=== PATIENT | female | born 1935 ===

== ENCOUNTER 2017-09-23 09:47 | Inpatient (IN) | payer OTHER, MEDICARE ==
[2017-09-23] MEDS ORDERED: GLUCAGON 1 MG/ML VIAL OTHER PRN (15:30)
[2017-09-23] MEDS ORDERED: DEXTROSE 50% IN WATER 50 ML VIAL(D50) IV PUSH PRN (15:30)
[2017-09-23 16:00] VITALS: BP 158/76; PULSE 67; RESP 18; TEMP 97.8; O2SAT 97
[2017-09-23] MEDS ORDERED: CO-EPOW PO (16:01)
[2017-09-23] MEDS ORDERED: LEVO250T7 PO (16:01)
[2017-09-23] MEDS ORDERED: OFLO0.3D5 EACH EYE (16:01)
[2017-09-23] MEDS ORDERED: LOVA20TA PO (16:01)
[2017-09-23] MEDS ORDERED: NITR100C4 PO (16:01)
[2017-09-23] MEDS ORDERED: DIFL0.0512 EACH EYE (16:01)
[2017-09-23] MEDS ORDERED: FURO40TA PO (16:01)
[2017-09-23] MEDS ORDERED: METO-488 PO (16:01)
[2017-09-23] MEDS ORDERED: MAGN400S (16:01)
[2017-09-23] MEDS ORDERED: ESCI5TAB PO (16:01)
[2017-09-23] MEDS ORDERED: GLIP10TA6 PO (16:01)
[2017-09-23] MEDS ORDERED: KRIL500C2 (16:01)
[2017-09-23] MEDS ORDERED: LISI-519 PO (16:01)
--- NOTE | 2017-09-23 16:07 | RADRPT ---
EXAM DATE/TIME: 09/23/2017 15:41 [place] COMPARISON: No previous studies available for comparison. INDICATIONS : Cough and shortness of breath. MEDICAL HISTORY : Hypertension. Diabetes. SURGICAL HISTORY : CABG. ENCOUNTER: Initial ACUITY: 3 months PAIN SCORE: 0/10 LOCATION: Bilateral chest FINDINGS: There is slight asymmetric elevation of and flattening of the right diaphragm. This may be chronic or may reflect some pleural fluid. There is diffuse interstitial prominence of undetermined chronicity. Heart size is borderline. Mediastinal contours are satisfactory accounting for rotation. There has b een previous sternotomy and CABG. CONCLUSION: Mild diffuse interstitial prominence. Possible right pleural effusion. Fidel Atkins MD on September 23, 2017 at 16:04 Board Certified Radiologist. This report was verified electronically.
--- NOTE | 2017-09-23 16:44 | HHI.HP ---
History of Present Illness Chief Complaint: AAA History of Present Illness 82 yo female with history of EVAR done elsewhere and that has lost proximal fixation, so she has an essentially unrepaired 10cm juxtarenal AAA. She is asymptomatic from this. She is not an open surgical candidate by history. She presents for steroid/HCO3 in preparation for EVAR with renal stents. Past/Family/Social History Past Medical History AAA CAD renal artery stenosis depression HTN CHF XOL Past Surgical History CABG EVAR with endovascular remediation Social History former smoker Family History NC Home Medications Reported Medications Ofloxacin Opth Drops (Ofloxacin Opth Drops) 0.3 % Drops, 1 DROP EACH EYE QID, # 1 BOTTLE 09/23/17 Nitrofurantoin Monohydrate Macrocrystals (Nitrofurantoin Monohydrate Macrocrystals) 100 Mg Cap, 100 MG PO BID for Infection, CAP 0 Refills 09/23/17 Metoprolol Succinate/HCTZ 50-12.5 ER (Metoprolol Succinate/HCTZ 50-12.5 ER) 50 Mg-12.5 Mg Tab, 1 TAB PO BID, #30 TAB 0 Refills 09/23/17 Magnesium Hydroxide (Eq Milk of Magnesia) 400 Mg/5 Ml Nanette 09/23/17 Lovastatin (Lovastatin) 20 Mg Tab, 20 MG PO DAILY for Cholesterol Management, # 30 TAB 0 Refills 09/23/17 Lisinopril (Lisinopril) 5 Mg Tab, 5 MG PO DAILY for Blood Pressure Management, # 30 TAB 0 Refills 09/23/17 Levofloxacin (Levofloxacin) 250 Mg Tablet, 250 MG PO DAILY for Infection, TAB 0 Refills 09/23/17 Krill Oil (Krill Oil) 500 Mg Capsule 09/23/17 Glipizide (Glipizide) 10 Mg Tab, 10 MG PO DAILY for Blood Sugar Management, #30 TAB 0 Refills Take 30 minutes before a meal 09/23/17 Furosemide (Furosemide) 40 Mg Tab, 40 MG PO DAILY, #30 TAB 0 Refills 09/23/17 Escitalopram (Escitalopram) 5 Mg Tab, 5 MG PO DAILY, #30 TAB 0 Refills 09/23/17 Difluprednate Opth (Durezol Opth) 0.05% Emul, 1 DROP EACH EYE BID 09/23/17 Coenzyme Q10 (Bulk) (Co-Enzyme Q10 (Bulk)) 1 Powd, 100 MG PO DAILY 09/23/17 Coded Allergies: CRISTOPHER Inhibitors (Verified Allergy, Mild, rash, 09/23/17) amoxicillin (Verified Allergy, Mild, rash, 09/23/17) celecoxib (Verified Allergy, Mild, itching, 09/23/17) clavulanic acid (Verified Allergy, Mild, rash, 09/23/17) iodine (Verified Allergy, Mild, rash, 09/23/17) Uncoded Allergies: Shellfish (Allergy, Unknown, anaphylaxis, 09/23/17) Review of Systems Constitutional: DENIES: Fever, Chills, Night Sweats Cardiovascular: COMPLAINS OF: Dyspnea on Exertion, DENIES: Chest pain, Claudication Physical Exam Neuro: alert, oriented, no distress, CHAVEZ HEENT: NC/AT Neck: no JVD Heart: reg rate, no M Lungs: clear Abdomen: obese, NT Vascular: palpable UE pulses Extremities: B LE edema, mild pending Last 48 hours Impressions Chest X-Ray 09/23/17 0000 Signed Impressions: Service Date/Time: Saturday, September 23, 2017 15:41 - CONCLUSION: Mild diffuse interstitial prominence. Possible right pleural effusion. Fidel Atkins MD Caprini VTE Risk Assessment Caprini VTE Risk Assessment: No/Low Risk (score <= 1) Caprini Risk Assessment Model Point Value = 1 Point Value = 2 Point Value = 3 Point Value = 5 Age 41-60 Minor surgery BMI > 25 kg/m2 Swollen legs Varicose veins or History of unexplained or recurrent spontaneous Oral contraceptives or hormone replacement Sepsis (< 1 month) Serious lung disease, including pneumonia (< 1 month) Abnormal pulmonary function Acute myocardial infarction Congestive heart failure (< 1 month) History of inflammatory bowel disease Medical patient at bed rest Age 61-74 Arthroscopic surgery Major open surgery (> 45 min) Laparoscopic surgery (> 45 min) Malignancy Confined to bed (> 72 hours) Immobilizing plaster cast Central venous access Age >= 75 History of VTE Family history of VTE Factor V Leiden Prothrombin [id number] Lupus anticoagulant Anticardiolipin antibodies Elevated serum homocysteine Heparin-induced thrombocytopenia Other congenital or acquired thrombophilia Stroke (< 1 month) Elective arthroplasty Hip, pelvis, or leg fracture Acute spinal cord injury (< 1 month) Prophylaxis Regimen Total Risk Factor Score Risk Level Prophylaxis Regimen 0-1 Low Early ambulation 2 Moderate Order ONE of the following: *Sequential Compression Device (SCD) *Heparin 5000 units SQ BID 3-4 Higher Order ONE of the following medications: *Heparin 5000 units SQ TID *Enoxaparin/Lovenox 40 mg SQ daily (WT < 150 kg, CrCl > 30 mL/min) *Enoxaparin/Lovenox 30 mg SQ daily (WT < 150 kg, CrCl > 10-29 mL/min) *Enoxaparin/Lovenox 30 mg SQ BID (WT < 150 kg, CrCl > 30 mL/min) AND/OR *Sequential Compression Device (SCD) 5 or more Highest Order ONE of the following medications: *Heparin 5000 units SQ TID (Preferred with Epidurals) *Enoxaparin/Lovenox 40 mg SQ daily (WT < 150 kg, CrCl > 30 mL/min) *Enoxaparin/Lovenox 30 mg SQ daily (WT < 150 kg, CrCl > 10-29 mL/min) *Enoxaparin/Lovenox 30 mg SQ BID (WT < 150 kg, CrCl > 30 mL/min) AND *Sequential Compression Device (SCD) Assessment and Plan Plan 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 She is not a candidate for open EVAR conversion and her family and I have talked extensively about the options, including no surgery. She is going to undergo re-do EVAR with B renal artery stents tomorrow. I have discussed in detail the plan and the patient and her family agree to proceed. They understand the risks, including but not limited to , inability to seal aneurysm, renal stent failure that may lead to dialysis. 1. NPO after MN 2. MIVF with HCO3 for renal protection 3. Steroid prep for contrast allergy: anticipate surgery at 0800 09/24 4. T&C 2U 5. Pre-op CXR, EKG, blood work 6. Consents are signed, witnessed, and on chart 7. Will check B UE blood pressures for renal stent delivery Abraham Wylie MD FACS VI briar cutter [facility] - Heart and Vascular Surgery at [place] [phone] Abraham Wylie MD Sep 23, 2017 16:44
[2017-09-23] MEDS: INSULIN NovoLIN REGULAR SUPPLEMENTAL SCALE SQ SCH ×2 (17:00→21:54)
[2017-09-23] MEDS: HEPARIN SODIUM - SQ 10,000 UNITS/ML VIAL SQ SCH ×2 (17:00→21:43)
[2017-09-23 18:20] LABS: HEMATOCRIT 41.1 % (35.0-46.0); HEMOGLOBIN 13.9 GM/DL (11.6-15.3); MEAN CELL VOLUME 91.8 FL (80.0-100.0); MEAN CORPUSCULAR HGB CONC 33.8 % (32.0-36.0); MEAN PLATELET VOLUME 8.4 FL (7.0-11.0); PLATELET COUNT 162 TH/MM3 (150-450); RED BLOOD COUNT 4.48 MIL/MM3 (4.00-5.30)
[2017-09-23 18:31] LABS: INTERNATIONAL NORMALIZED RATIO 1.1 RATIO; PROTHROMBIN TIME - PATIENT 10.9 SEC (9.8-11.6)
[2017-09-23 18:40] LABS: BICARBONATE 26.4 MEQ/L (21.0-32.0); CALCIUM 9.3 MG/DL (8.5-10.1); CREATININE 1.96 MG/DL (0.50-1.00)
[2017-09-23] MEDS: SODIUM BICARBONATE 8.4% INJ 100 MEQ in DEXTROSE 5% IN WATE 1000ML INJ 1,000 ML IV SCH ×2 (18:53)
[2017-09-23] MEDS ORDERED: predniSONE 50 MG TAB PO ONE (19:00)
[2017-09-23 20:00] VITALS: BP_SYST 130; BP_SYST 134; BP_DIAS 77; BP_DIAS 84; PULSE 68; RESP 16; TEMP 97.7; O2SAT 95
[2017-09-23] MEDS: METOPROLOL TARTRATE 25 MG TAB PO SCH (21:00)
[2017-09-23] MEDS: ATORVASTATIN 40 MG TAB PO SCH (21:53)
[2017-09-23] MEDS: FAMOTIDINE 20 MG TAB PO SCH (21:54)
[2017-09-23 23:47] VITALS: PULSE 73
[2017-09-24] VITALS: BP 132/73; PULSE 62; RESP 16; TEMP 97.9; O2SAT 95
[2017-09-24] MEDS ORDERED: predniSONE 50 MG TAB PO ONE ×2 (01:00→07:00)
[2017-09-24] MEDS ORDERED: LACTATED RINGER'S 1000 ML IV PRN (02:45)
[2017-09-24] MEDS ORDERED: SODIUM CHLORID 0.9% 500 ML IV PRN (02:45)
[2017-09-24] MEDS ORDERED: CHLORHEXIDINE GLUCONATE 2 % 1 PACK (2 CLOTHS) TOPICAL PRN (02:45)
[2017-09-24 03:14] LABS: AUTOMATED NEUTROPHIL # 5.6 TH/MM3 (1.8-7.7); BASOPHIL % 0.4 % (0.0-2.0); EOSINOPHIL % 0.1 % (0.0-4.0); HEMATOCRIT 41.4 % (35.0-46.0); HEMOGLOBIN 13.9 GM/DL (11.6-15.3); LYMPH % 12.2 % (9.0-44.0); LYMPHOCYTE # 0.8 TH/MM3 (1.0-4.8); MEAN CORPUSCULAR HEMOGLOBIN 30.9 PG (27.0-34.0); MEAN CORPUSCULAR HGB CONC 33.5 % (32.0-36.0); MEAN PLATELET VOLUME 8.6 FL (7.0-11.0); MONO % 0.8 % (0.0-8.0); MONOCYTE # 0.1 TH/MM3 (0-0.9); NEUT % 86.5 % (16.0-70.0); PLATELET COUNT 153 TH/MM3 (150-450); RED CELL DISTRIBUTION WIDTH 14.1 % (11.6-17.2); WHITE BLOOD COUNT 6.5 TH/MM3 (4.0-11.0)
[2017-09-24] MEDS: METOPROLOL TARTRATE 25 MG TAB PO SCH ×2 (06:23→21:35)
[2017-09-24] MEDS ORDERED: HEPARIN SODIUM - IV 10,000 UNITS/10 ML VIAL ONE (06:25)
[2017-09-24] MEDS ORDERED: BUPIVACAINE HCL PF 0.5% 30 ML VIAL ONE (06:25)
[2017-09-24] MEDS ORDERED: PROTAMINE SULFATE 50 MG/5 ML VIAL ONE (06:25)
[2017-09-24] MEDS ORDERED: VANCOMYCIN HCL 1000 MG VIAL ONE (06:26)
[2017-09-24] MEDS ORDERED: ceFAZolin INJ 1,000 MG VIAL ONE (06:26)
[2017-09-24] MEDS ORDERED: THROMBIN (TOPICAL) 20,000 UNIT SPRAY KIT ONE (06:26)
[2017-09-24] MEDS ORDERED: HEPARIN-NS/PF INJ 1,000 ML ONE (06:26)
[2017-09-24] MEDS ORDERED: diphenhydrAMINE HCL 50 MG CAP PO ONE (07:00)
[2017-09-24] MEDS: INSULIN NovoLIN REGULAR SUPPLEMENTAL SCALE SQ SCH ×4 (08:00→21:00)
[2017-09-24] MEDS: ESCITALOPRAM OXALATE 10 MG TAB PO SCH (09:00)
[2017-09-24] MEDS: FAMOTIDINE 20 MG TAB PO SCH ×2 (09:00→21:35)
[2017-09-24] MEDS: HEPARIN SODIUM - SQ 10,000 UNITS/ML VIAL SQ SCH ×2 (09:00→17:00)
[2017-09-24] MEDS: ASPIRIN 81 MG CHEW TAB PO SCH (09:00)
[2017-09-24] MEDS ORDERED: IOHEXOL 300 INJ 50 ML IV ONE (09:23)
[2017-09-24] MEDS ORDERED: ROCURONIUM INJ 50 MG/5 ML SYRINGE IV PUSH ONE (09:44)
[2017-09-24] MEDS ORDERED: NORMOSOL R INJ 1,000 ML IV ONE (09:44)
[2017-09-24] MEDS ORDERED: ONDANSETRON HCL 4 MG/2 ML VIAL IV ONE (09:44)
[2017-09-24] MEDS ORDERED: SODIUM CHLORID 0.9% 500 ML INJ 500 ML IV ONE (09:44)
[2017-09-24] MEDS ORDERED: GLYCOPYRROLATE 1 MG/5 ML SYRINGE IV PUSH ONE (09:44)
[2017-09-24] MEDS ORDERED: LIDOCAINE HCL 1% PF 5 ML SYRINGE OTHER ONE (09:44)
[2017-09-24] MEDS ORDERED: SODIUM CHLOR 0.9% 250 ML INJ 250 ML IV ONE (09:44)
[2017-09-24] MEDS ORDERED: ePHEDrine/NS 25 MG/5 ML SYRINGE IV ONE (09:44)
[2017-09-24] MEDS ORDERED: NEOSTIGMINE 5 MG/5 ML SYRINGE IV PUSH ONE (09:44)
[2017-09-24] MEDS ORDERED: PROPOFOL 200 MG/20 ML AMP IV ONE (09:44)
--- NOTE | 2017-09-24 10:13 | EKG ---
Date Performed: 09/23/2017 Time Performed: 16:19:33 PTAGE: 82 years EKG: Sinus rhythm WITH FREQUENT ECTOPIC PREMATURE COMPLEXES POSSIBLE LEFT ATRIAL ENLARGEMENT LOW QRS VOLTAGE IN PRECOR DIAL LEADS MODERATE ST DEPRESSION ABNORMAL ECG NO PREVIOUS TRACING DOCTOR: Jin Molina Interpretating Date/Time 09/24/2017 10:11:53
[2017-09-24] MEDS: SODIUM BICARBONATE 8.4% INJ 100 MEQ in DEXTROSE 5% IN WATE 1000ML INJ 1,000 ML IV SCH ×2 (11:28)
[2017-09-24] MEDS ORDERED: DO NOT ADM ANY ANTICOAGULANT DRUGS PRN (11:32)
[2017-09-24] MEDS ORDERED: MIDAZOLAM HCL 2 MG/2 ML VIAL ONE (11:38)
[2017-09-24] MEDS ORDERED: HEPARIN SODIUM - SQ 10,000 UNITS/ML VIAL SQ SCH (11:45)
[2017-09-24] MEDS ORDERED: LACTULOSE SYRUP 20 GM/30 ML CUP PO PRN (11:45)
[2017-09-24] MEDS ORDERED: BISACODYL 10 MG SUPP RECTAL PRN (11:45)
[2017-09-24] MEDS ORDERED: SENNOSIDES 8.6 MG TAB PO PRN (11:45)
[2017-09-24] MEDS ORDERED: MAGNESIUM HYDROXIDE SUSP 30 ML CUP PO PRN (11:45)
--- NOTE | 2017-09-24 11:45 | HHI.PR ---
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 L axillary conduit 2. Renal angiogram 3. B CARDIAC REHABILITATION PROGRAM DIRECTOR access Findings: unable to cannulate LEFT renal artery with sheath, procedure aborted Additional Information: + Doppler signals B LE Complications: none Specimen(s) removed: none Estimated blood loss: 100mL Anesthesia: General Drains: None Fluids: 2200mL IVF Urinary Output (mLs): 325 Patient to: PACU Patient Condition: Good Implant/Devices: SEE IMPLANT LOG (if applicable) Date/Time of Procedure: SEE SURGICAL CARE RECORD Abraham Wylie MD Sep 24, 2017 11:45
[2017-09-24 13:00] VITALS: BP 137/78; PULSE 72; RESP 16; TEMP 97.6; O2SAT 93
--- NOTE | 2017-09-24 13:38 | MP ---
cc: Abraham Wylie MD DATE OF OPERATION: 09/24/2017 PREOPERATIVE DIAGNOSIS: Juxtarenal aortic aneurysm, status post failed endovascular aneurysm repair. POSTOPERATIVE DIAGNOSIS: Juxtarenal aortic aneurysm, status post failed endovascular aneurysm repair. PROCEDURE PERFORMED: 1. Bilateral common femoral artery access. 2. Left axillary conduit with a 10 mm Dacron. 3. Right renal artery angiogram. ATTENDING SURGEON: Abraham Wylie MD ANESTHESIA: General. INDICATIONS FOR PROCEDURE: Mrs. Ramirez is an 82-year-old lady who has a with a type 1 endoleak after an EVAR of a 10 cm aneurysm. She was taken to the operating room for attempted endovascular chimney repair of her EVAR. Intraoperatively, it was found that we could not reliably cannulate the left renal artery and the decision was made to abort the procedure at that time. DESCRIPTION OF PROCEDURE: Informed consent was obtained from the patient. She was taken to the operating room and placed supine on the operating table. Appropriate timeout was taken to ensure the patient's identity, the operative site and planned procedure. 1 gram of vancomycin was initiated prior to skin incision and will be discontinued after a single preoperative dose. Vancomycin was chosen because of the patient's PENICILLIN ALLERGY. Everyone in the room agreed with the timeout and we proceeded. Her chest, abdomen, pelvis and thighs were prepped and draped. A 21-gauge micropuncture needle was used to access the right common femoral artery. This was obtained using Seldinger's technique through the micropuncture sheath, through which a 0.035 STORQ wire was introduced. The micropuncture sheath was exchanged for a 5-[place] sheath and 2 Perclose ProGlide sutures were inserted and tagged but not tied down. These were to be used later. Similar procedure on the left common femoral artery was obtained and an 8-[place] sheath was introduced. Incision was made in the infraclavicular region of the left shoulder, carried down through subcutaneous tissue with electrocautery. The deltopectoral muscle was divided and the axillary artery was identified and dissected free for several centimeters, then encircled with a vessel loop. At this point, the patient was systemically heparinized and throughout the remainder of this case the ACT was greater than 250. Proximally and distal control of the axillary artery obtained with fundal clamps and a longitudinal arteriotomy was made with an 11 blade, extended with Pal scissors. The conduit 10 mm Dacron was brought up on the field and sewn end-to-side with running 5-0 Prolene suture. At the completion its was flushed and noted to be hemostatic. Carmela Softjaw clamps were placed on the conduit and then we passed the Glidewires. Micropuncture access was used. Glidewires were passed with the aid of a pigtail catheter down to the descending thoracic aorta and a 7-[place]ayan sheath introduced over Chahal wires. We were able to cannulate the right renal artery and this was confirmed angiographically. The left renal artery; however, was not able to be cannulated despite multiple catheter and wire exchanges and ultimately we abandoned the efforts. The wire, catheter and sheath were removed. The clamp was applied and the graft was oversewn with running 5-0 Prolene suture. The wound was made hemostatic. There was a nice dopplerable pulse in the wrist and the wound was infiltrated with Marcaine and closed with 2-0 Polysorb, 3-0 Polysorb and 4-0 Monocryl. The 8-[place]ruguayan sheaths were removed and Perclose tied down from the groins. There were Doppler signals in the feet and the heparin was reversed with protamine. 4-0 Monocryl was then placed in the groin. The patient was then awoken from anesthesia and transported to the recovery room in stable condition. I was present and scrubbed and performed the entire procedure. MD ERI Norton/GIO , 12:37 PM , 01:37 PM
[2017-09-24 14:00] VITALS: BP 132/73; PULSE 64; RESP 16; TEMP 97.6; O2SAT 93
[2017-09-24 14:38] VITALS: BP_SYST 126; BP_SYST 145; BP_DIAS 71; BP_DIAS 78
[2017-09-24 15:00] VITALS: BP 145/78; PULSE 83; RESP 16; TEMP 97.3; O2SAT 92
[2017-09-24] MEDS: ACETAMINOPHEN/CODEINE 300 MG/30 MG TAB PO PRN (18:52)
[2017-09-24] MEDS ORDERED: ACETAMINOPHEN/CODEINE 300 MG/30 MG TAB PO PRN (19:00)
[2017-09-24 20:00] VITALS: BP 129/64; PULSE 80; PULSE 81; RESP 20; TEMP 98.4; O2SAT 95
[2017-09-24] MEDS: DOCUSATE SODIUM 50 MG/SENNA 8.6 MG TAB PO SCH (21:35)
[2017-09-24] MEDS: ATORVASTATIN 40 MG TAB PO SCH (21:36)
[2017-09-25] VITALS: BP 132/75; PULSE 78; RESP 20; TEMP 98.2; O2SAT 98
[2017-09-25] MEDS: HEPARIN SODIUM - SQ 10,000 UNITS/ML VIAL SQ SCH ×2 (01:00→08:08)
[2017-09-25 04:00] VITALS: BP 125/72; PULSE 69; PULSE 70; RESP 20; TEMP 98.7; O2SAT 98
[2017-09-25 07:00] VITALS: BP 118/65; PULSE 76; PULSE 83; RESP 16; TEMP 98.6; O2SAT 94
[2017-09-25 07:18] LABS: HEMATOCRIT 38.7 % (35.0-46.0); HEMOGLOBIN 12.8 GM/DL (11.6-15.3); MEAN CORPUSCULAR HEMOGLOBIN 30.5 PG (27.0-34.0); MEAN CORPUSCULAR HGB CONC 33.2 % (32.0-36.0); MEAN PLATELET VOLUME 8.6 FL (7.0-11.0); PLATELET COUNT 137 TH/MM3 (150-450); RED CELL DISTRIBUTION WIDTH 14.3 % (11.6-17.2); WHITE BLOOD COUNT 10.1 TH/MM3 (4.0-11.0)
--- NOTE | 2017-09-25 07:36 | PD.VS.PN ---
Subjective POD #: 1 Procedure(s): axillary conduit and renal angiogram Subjective/Hospital Course Pt doing well overnight. voided since West out. no abdominal pain Objective Vitals/I&O Date Time Temp Pulse Resp B/P (MAP) Pulse Ox O2 Delivery O2 Flow Rate FiO2 09/25/17 04:00 98.7 69 20 125/72 (89) 98 09/25/17 04:00 98 Room Air 09/25/17 04:00 70 09/25/17 00:00 98.2 78 20 132/75 (94) 98 09/25/17 00:00 98 Room Air 09/25/17 00:00 78 09/24/17 20:00 80 09/24/17 20:00 95 Nasal Cannula 2.00 09/24/17 20:00 98.4 81 20 129/64 (85) 95 09/24/17 15:00 92 Room Air 09/24/17 15:00 83 09/24/17 15:00 97.3 83 16 145/78 (100) 92 09/24/17 14:38 126/71 (89) 145/78 (100) 09/24/17 14:00 97.6 64 16 132/73 (92) 93 09/24/17 13:00 97.6 72 16 137/78 (97) 93 09/24/17 13:00 72 09/24/17 13:00 93 Room Air 09/24/17 12:45 97.6 66 17 137/67 (90) 97 Room Air 09/24/17 12:30 64 17 139/67 (91) 98 Room Air 09/24/17 12:15 67 17 143/67 (92) 98 Nasal Cannula 2 09/24/17 12:00 71 17 141/78 (99) 98 Nasal Cannula 2 09/24/17 11:45 81 17 140/81 (100) 98 Nasal Cannula 2 09/24/17 11:28 97.4 85 17 136/85 (102) 98 Nasal Cannula 3 09/25/17 09/25/17 09/25/17 07:00 15:00 23:00 Intake Total 960 ml Output Total 500 ml Balance 460 ml Exam: sitting in bed. palpable UE pulses groins ok Incisions: L chest incision ok Laboratory Laboratory Tests Test 09/25/17 05:47 White Blood Count 10.1 Red Blood Count 4.20 Hemoglobin 12.8 Hematocrit 38.7 Mean Corpuscular Volume 92.0 Mean Corpuscular Hemoglobin 30.5 Mean Corpuscular Hemoglobin Concent 33.2 Red Cell Distribution Width 14.3 Platelet Count 137 Mean Platelet Volume 8.6 Assessment and Plan Plan POD#1. Unable to deliver both renal stents, hence endovascular repair would necessitate L renal artery occlusion and this would diminish renal function further. I had a long talk with the patient and her family about this and have explained what I perceived to be the options. 1. Observation without surgical intervention 2. Open TAAA (EVAR explant) - would need to be done in [facility] because of multiple surgeons available 3. L renal artery embolization and single renal chimney - would drop her renal function to an extent. I will call her later this week and discuss. Abraham Wylie MD FACS RPVI data examination clerk [facility] - Heart and Vascular Surgery at [facility] [phone] Discharge Planning today Abraham Wylie MD Sep 25, 2017 07:36
--- NOTE | 2017-09-25 07:39 | PD.VS.DC ---
Discharge Summary Admission Date: Sep 23, 2017 at 14:56 Discharge Date: Sep 25, 2017 Admission Diagnosis: (1) Thoraco abdominal aneurysm Discharge Diagnosis: (1) Thoraco abdominal aneurysm ICD Codes: I71.6 - Thoracoabdominal aortic aneurysm, without rupture Brief History from admission 82 yo female with history of EVAR done elsewhere and that has lost proximal fixation, so she has an essentially unrepaired 10cm juxtarenal AAA. She is asymptomatic from this. She is not an open surgical candidate by history. She presents for steroid/HCO3 in preparation for EVAR with renal stents. Procedure(s): axillary conduit and renal angiogram Significant Findings Laboratory Tests Test 09/23/17 18:05 09/24/17 02:53 09/25/17 05:47 Blood Urea Nitrogen 33 MG/DL (7-18) Creatinine 1.96 MG/DL (0.50-1.00) Chloride Level 110 MEQ/L (98-107) Estimat Glomerular Filtration Rate 24 ML/MIN (>89) Neutrophils (%) (Auto) 86.5 % (16.0-70.0) Lymphocytes # (Auto) 0.8 TH/MM3 (1.0-4.8) Platelet Count 137 TH/MM3 (150-450) Hospital Course: The procedure was aborted because it was unable to be completed without LEFT kidney artery occlusion. I had a long conversation with the patient and her family about the options moving forward. They will think about things and we will talk later this week. Overnight, she has done well post-op and has pain controlled with pain meds, has voided since the West was removed, and is madiha some oral intake. Discharge Condition: Good Discharge Disposition: Discharge Home Any questions or concerns: Call [facility] at [facility] [phone] Abraham Wylie MD Sep 25, 2017 07:39
[2017-09-25 07:48] LABS: BICARBONATE 24.3 MEQ/L (21.0-32.0); CALCIUM 9.2 MG/DL (8.5-10.1); CREATININE 1.89 MG/DL (0.50-1.00)
[2017-09-25] MEDS: INSULIN NovoLIN REGULAR SUPPLEMENTAL SCALE SQ SCH (08:00)
[2017-09-25] MEDS: DOCUSATE SODIUM 50 MG/SENNA 8.6 MG TAB PO SCH (08:08)
[2017-09-25] MEDS: FAMOTIDINE 20 MG TAB PO SCH (08:41)
[2017-09-25] MEDS: ASPIRIN 81 MG CHEW TAB PO SCH (08:42)
[2017-09-25] MEDS: METOPROLOL TARTRATE 25 MG TAB PO SCH (08:42)
[2017-09-25] MEDS: ESCITALOPRAM OXALATE 10 MG TAB PO SCH (08:42)
[2017-09-25] MEDS: ACETAMINOPHEN/CODEINE 300 MG/30 MG TAB PO PRN (08:43)
[2017-09-25] MEDS ORDERED: ASPIRIN 81 MG CHEW TAB PO SCH (09:00)
== END 2017-09-25 09:45 | disposition home or self-care (01) | DRG 254 ==
LOC: N07A 14:56 → N07B 09-24 09:48 → HCVI 09-24 13:02
PROVIDERS: ADMIT Surgery; ATTEND Surgery
PROC: 03U60JZ Supplement Left Axillary Artery with Synthetic Substitute, Open Approach (ICD-10-PCS; principal; 2017-09-24 07:47)
PROC: B4161ZZ Fluoroscopy of Right Renal Artery using Low Osmolar Contrast (ICD-10-PCS; 2017-09-24 07:47)
DX: T82.330A Leakage of aortic (bifurcation) graft (replacement), initial encounter (principal); I11.0 Hypertensive heart disease with heart failure; I50.9 Heart failure, unspecified; Z95.1 Presence of aortocoronary bypass graft; I25.10 Atherosclerotic heart disease of native coronary artery without angina pectoris; I71.4 Abdominal aortic aneurysm, without rupture; I70.1 Atherosclerosis of renal artery; F32.9 Major depressive disorder, single episode, unspecified; Y83.2 Surgical operation with anastomosis, bypass or graft as the cause of abnormal reaction of the patient, or of later complication, without mention of misadventure at the time of the procedure; Z91.041 Radiographic dye allergy status; Z87.891 Personal history of nicotine dependence
CPT/HCPCS: 71045; 80048; 82948; 85025; 85027; 85610; 86850; 86900; 86901; 86920; 93005; J0690; J1644; J2250; J2405; J2710; J2720; J3010; J3370; J7040; J7050; J7070; J7512; Q0163; Q9967